=== PATIENT | female | born 1975 | race Caucasian/White ===

== ENCOUNTER 2021-08-16 02:09 | Emergency (ER) | payer MEDICAID ==
[~2021-08-16] VITALS: Ht 172.7 cm; Wt 65.9 kg
[~2021-08-16 02:09] MED LIST: CEPH-572 PO
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
[2021-08-16] MEDS ORDERED: TETanus/Pertussis (Acell)/Diphther VAC/PF (Tdap-Adult) 0.5ml syringe IMVAC ONE (03:30)
[2021-08-16 03:37] VITALS: BP 128/77
== END 2021-08-16 03:39 ==
LOC: ER 02:11 → MERGE 02:11 → EDSEX 02:11 → EDBD 02:11 → ER 03:39
DX: S30.0XXA Contusion of lower back and pelvis, initial encounter (principal); X58.XXXA Exposure to other specified factors, initial encounter; Y93.89 Activity, other specified; Y92.89 Other specified places as the place of occurrence of the external cause; Y99.8 Other external cause status
CPT/HCPCS: 99283

== ENCOUNTER 2022-02-28 22:47 | Emergency (ER) | payer SELFPAY ==
[~2022-02-28] VITALS: Ht 167.6 cm; Wt 60.0 kg
[2022-02-28 23:03] VITALS: BP 108/44
== END 2022-03-01 04:48 | disposition left against medical advice (07) ==
LOC: ER 22:49
DX: Z00.00 Encounter for general adult medical examination without abnormal findings (principal); Z53.21 Procedure and treatment not carried out due to patient leaving prior to being seen by health care provider

== ENCOUNTER 2022-07-18 19:06 | Emergency (ER) | payer SELFPAY ==
[~2022-07-18] VITALS: Ht 172.7 cm; Wt 59.1 kg
[~2022-07-18 19:06] MED LIST changes: +IBUP-860 PO
[2022-07-18 19:11] VITALS: BP 100/64
[2022-07-18] MEDS ORDERED: normal saline 1000ml 1,000 ML IV ONE ×2 (19:35→22:35)
[2022-07-18] MEDS ORDERED: naloxone 2mg/2ml inj IV STA ×4 (19:40→22:43)
[2022-07-18 19:43] LABS: BASOPHILS # (AUTO) 0.1 X10'3 (0-0.2); EOSINOPHILS # (AUTO) 0.1 X10'3 (0-0.9); EOSINOPHILS % (AUTO) 1.4 % (0-6); HEMATOCRIT 39.7 % (35.0-45.0); HEMOGLOBIN 12.9 g/dl (12.0-16.0); LYMPHOCYTES # (AUTO) 1.5 X10'3 (1.1-4.8); LYMPHOCYTES % (AUTO) 14.4 % (21-51); MEAN CORPUSCULAR HEMOGLOBIN 30.1 PG (27.0-31.0); MEAN CORPUSCULAR HGB CONC 32.6 g/dL (33.0-36.5); MEAN CORPUSCULAR VOLUME 92.3 FL (78-98); MEAN PLATELET VOLUME 8.1 FL (7.4-10.4); MONOCYTES # (AUTO) 0.7 X10'3 (0-0.9); MONOCYTES % (AUTO) 6.7 % (2-12); NEUTROPHILS # (AUTO) 7.7 X10'3 (1.8-7.7); NEUTROPHILS % (AUTO) 76.5 % (42-75); PLATELET COUNT 291 X10'3 (140-440); RED CELL DISTRIBUTION WIDTH 14.1 % (11.5-14.5); WHITE BLOOD COUNT 10.1 X10'3 (4.5-11.0)
[2022-07-18 19:54] LABS: ALANINE AMINOTRANSFERASE 47 U/L (12-78); ALBUMIN 3.7 G/DL (3.4-5.0); ALBUMIN/GLOBULIN RATIO 1.1 (1.1-1.5); ALKALINE PHOSPHATASE 106 IU/L (46-116); ANION GAP 12 (8-16); ASPARTATE AMINO TRANSFERASE 27 U/L (10-37); BILIRUBIN,TOTAL 0.2 MG/DL (0.1-1.0); BLOOD UREA NITROGEN 19 MG/DL (7-18); BUN/CREATININE RATIO 17.4 (10.0-20.0); CHLORIDE 106 MMOL/L (99-107); CREATININE 1.09 MG/DL (0.40-0.90); GLUCOSE 236 MG/DL (70-104); POTASSIUM 3.1 MMOL/L (3.5-5.1); SODIUM 142 MMOL/L (135-145); TOTAL CARBON DIOXIDE 24.4 MMOL/L (24-32); eGFR 54 ML/MIN
[2022-07-18 20:00] LABS: ETHANOL < 0.010 GM/DL (0.0-0.010)
[2022-07-18 20:12] LABS: URINE HCG NEGATIVE (NEG)
[2022-07-18 20:29] LABS: URINE AMPHETAMINE SCREEN POSITIVE (Neg); URINE BARBITUATE SCREEN NEGATIVE (Neg); URINE BENZODIAZEPINES SCREEN NEGATIVE (Neg); URINE CANNABINOID SCREEN POSITIVE (Neg); URINE COCAINE SCREEN NEGATIVE (Neg); URINE METHADONE SCREEN NEGATIVE (Neg); URINE OPIATE SCREEN NEGATIVE (Neg); URINE PHENCYCLIDINE SCREEN NEGATIVE (Neg)
--- NOTE | 2022-07-18 21:23 | NUR ---
Pt refusing lab draws. Physician aware.
[2022-07-18] MEDS ORDERED: NALO4SPR BOTHNARES (21:32)
[2022-07-18] MEDS ORDERED: POTASSIUM BICARB 20meq eff tab 20 MEQ TABLET.EFF PO STA (22:29)
[2022-07-18] MEDS ORDERED: naloxone 2mg/2ml inj 2 MG in normal saline 500ml IV soln 498 ML IV SCH (22:45)
[2022-07-19] MEDS ORDERED: NALO4SPR BOTHNARES (04:45)
[2022-07-19] MEDS ORDERED: NO HOME MEDS (12:00)
== END 2022-07-18 23:06 | disposition left against medical advice (07) ==
LOC: ER 19:07 → MERGE 19:07 → ER 23:06
DX: T40.601A Poisoning by unspecified narcotics, accidental (unintentional), initial encounter (principal); E87.6 Hypokalemia; Y92.89 Other specified places as the place of occurrence of the external cause; F12.90 Cannabis use, unspecified, uncomplicated; F15.20 Other stimulant dependence, uncomplicated; Z59.00 Homelessness unspecified; Z56.0 Unemployment, unspecified
CPT/HCPCS: 36415; 71045; 80053; 80305; 80320; 81025; 83880; 84484; 85025; 93005; 96361; 96374; 96376; 99285; J2310; J7030; A4353; A4565; A4615

== ENCOUNTER 2022-12-01 21:59 | Emergency (ER) | payer MEDICAID ==
[~2022-12-01] VITALS: Ht 165.1 cm; Wt 59.1 kg
[2022-12-01] MEDS ORDERED: LORazepam 2 mg/ml vial IM ONE (22:15)
[2022-12-01] MEDS ORDERED: haloperidol lactate 5mg/ml inj IM ONE (22:15)
[2022-12-01] MEDS ORDERED: diphenhydrAMINE 50 mg/ml inj IM ONE (22:15)
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
[2022-12-01 22:41] LABS: BASOPHILS # (AUTO) 0.1 X10'3 (0-0.2); BASOPHILS % (AUTO) 0.7 % (0-1); EOSINOPHILS # (AUTO) 0.1 X10'3 (0-0.9); EOSINOPHILS % (AUTO) 0.7 % (0-6); HEMATOCRIT 37.1 % (35.0-45.0); HEMOGLOBIN 12.2 g/dl (12.0-16.0); LYMPHOCYTES % (AUTO) 11.3 % (21-51); MEAN CORPUSCULAR HEMOGLOBIN 30.1 PG (27.0-31.0); MEAN CORPUSCULAR VOLUME 91.2 FL (78-98); MEAN PLATELET VOLUME 9.2 FL (7.4-10.4); MONOCYTES # (AUTO) 0.6 X10'3 (0-0.9); MONOCYTES % (AUTO) 6.6 % (2-12); NEUTROPHILS # (AUTO) 7.4 X10'3 (1.8-7.7); NEUTROPHILS % (AUTO) 80.7 % (42-75); PLATELET COUNT 245 X10'3 (140-440); RED BLOOD COUNT 4.07 X10'6 (4.20-5.60); RED CELL DISTRIBUTION WIDTH 13.4 % (11.5-14.5); WHITE BLOOD COUNT 9.2 X10'3 (4.5-11.0)
[2022-12-01 22:48] LABS: ALANINE AMINOTRANSFERASE 99 U/L (12-78); ALBUMIN 4.2 G/DL (3.4-5.0); ALBUMIN/GLOBULIN RATIO 1.3 (1.1-1.5); ALKALINE PHOSPHATASE 93 IU/L (46-116); ANION GAP 13 (8-16); ASPARTATE AMINO TRANSFERASE 108 U/L (10-37); BILIRUBIN,TOTAL 1.5 MG/DL (0.1-1.0); BLOOD UREA NITROGEN 17 MG/DL (7-18); BUN/CREATININE RATIO 18.3 (10.0-20.0); CALCIUM 9.5 MG/DL (8.5-10.1); CHLORIDE 99 MMOL/L (99-107); CREATININE 0.93 MG/DL (0.40-0.90); ETHANOL < 10 MG/DL (<10); GLUCOSE 114 MG/DL (70-104); POTASSIUM 4.1 MMOL/L (3.5-5.1); SODIUM 135 MMOL/L (135-145); TOTAL CARBON DIOXIDE 23.2 MMOL/L (24-32); TOTAL PROTEIN 7.4 G/DL (6.4-8.2); eCRCL 67 ML/MIN; eGFR 65 ML/MIN
--- NOTE | 2022-12-02 00:36 | NUR ---
PT HAS BEEN SLEEPING IN ER ROOM 10 POST MEDICATIONS. RR ARE EQUAL AND UNLABORED. NO DISTRESS OBSERVED.
--- NOTE | 2022-12-02 00:55 | NUR ---
PT IS UNCOOPERATIVE WITH THE GENERAL ASSESSMENT. PT WILL NOT ALLOW NURSING STAFF TO EXAMINE HER.
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
--- NOTE | 2022-12-02 03:14 | NUR ---
The patient appears to be sleeping
--- NOTE | 2022-12-02 05:02 | NUR ---
The patient appears to be sleeping
--- NOTE | 2022-12-02 06:30 | NUR ---
Received pt. sleeping in bed, rise and fall of chest noted.
--- NOTE | 2022-12-02 08:30 | NUR ---
Pt. continues to sleep at this time, resting on her back, rr are even and unlabored.
--- NOTE | 2022-12-02 10:27 | NUR ---
Pt. continues to sleep at this time, she makes intermittent body adjustments.
--- NOTE | 2022-12-02 10:45 | NUR ---
Pt. awoke requesting to use the bathroom, ordered urine sample was obtained and taken to lab. Pt. is now sitting up in bed eating breakfast at this time.
[2022-12-02 10:54] LABS: URINE HCG NEGATIVE (NEG)
[2022-12-02 10:58] LABS: BILIRUBIN,URINE NEGATIVE (Neg); CLARITY,URINE CLEAR (Clear); COLOR,URINE YELLOW (Yellow); GLUCOSE, URINE NEGATIVE (Neg); KETONES,URINE TRACE mg/dl (Neg); LEUKOCYTE ESTERASE ,URINE NEGATIVE (Neg); NITRITES, URINE NEGATIVE (Neg); OCCULT BLOOD,URINE NEGATIVE (Neg); PROTEIN,URINE NEGATIVE (Neg); UROBILINOGEN,URINE 0.2 E.U/dL (0.2-1.0)
--- NOTE | 2022-12-02 11:00 | NUR ---
Pt. awoke at approximately 1100 and ambulated to the bathroom independently. She presented as pleasant and cooperative and allowed this board writer to complete vital signs and a physical assessment. Pt. also ate 100% of her breakfast and then returned back to bed. Upon physical assessment, pt. has scabbed abrasions present to her bilateral arms and legs witch appear to be healing well. She also has bruising on her face, but is unable to articulate the cause of these injuries. Pt. is A&O X2 (to name and place only). Pt. denies any S/I or A/V/BURT and upon further questioning became agitated and began making what appeared to be disorganized paranoid delusional statements. When questioned regarding why she is here, pt. stated, "I was way out in the middle of nowhere and trying to get to [place]. The doctor withheld my SSI! It affects all of you, comes out of taxes!" She then continued on accusing this board writer, "It was you! You're the one!" This board writer was unable to re-orient pt. to reality and provided pt. with a quiet environment (decreased stimulation with lights off) to help de-escalate her. This was effective and pt. returned to sleep, will continue to monitor her closely.
[2022-12-02 11:03] LABS: UA COLLECTION TYPE CLN CATCH MIDSTREAM
[2022-12-02 11:14] LABS: URINE AMPHETAMINE SCREEN POSITIVE (Neg); URINE BARBITUATE SCREEN NEGATIVE (Neg); URINE BENZODIAZEPINES SCREEN NEGATIVE (Neg); URINE CANNABINOID SCREEN POSITIVE (Neg); URINE COCAINE SCREEN NEGATIVE (Neg); URINE METHADONE SCREEN NEGATIVE (Neg); URINE OPIATE SCREEN NEGATIVE (Neg); URINE PHENCYCLIDINE SCREEN NEGATIVE (Neg)
--- NOTE | 2022-12-02 11:25 | NUR ---
tom sent pt packet to [facility]
--- NOTE | 2022-12-02 12:33 | NUR ---
Pt. is sleeping at this time, rr are even and unlabored.
--- NOTE | 2022-12-02 13:09 | NUR ---
[facility] at bedside evaluating pt. at this time.
--- NOTE | 2022-12-02 14:22 | NUR ---
Pt. is sleeping at this time, laying on her right side.
--- NOTE | 2022-12-02 15:48 | NUR ---
Per charge aide of [facility], pt. is pending acceptance at this time. However, CLAUDETTE Vega is concerned regarding pt's recent aggression and labile behaviors. She would like to start the pt. on oral medication first and see how she responds prior to accepting. CLAUDETTE Vega ordered Zyprexa 10mg at HS which will be started tonight. Will endorse to Noc shift and continue to monitor pt. closely.
--- NOTE | 2022-12-02 16:22 | NUR ---
Pt. continues to sleep at this time, laying on her right side.
--- NOTE | 2022-12-02 18:15 | NUR ---
Pt. continues to sleep at this time, rr are even and unlabored.
--- NOTE | 2022-12-02 18:30 | NUR ---
Pt recieved Right side lying in hospital bed. Pt is arouseable to verbal stimuli. Pt provided dinner tray. She wanted scientific writer to leave on bedside table. Pt was desiring to sleep.
--- NOTE | 2022-12-02 20:00 | NUR ---
Pt ate dinner sitting up side of bed. Pt refused nursing assessment. She stated it is time for sleep. Pt refused night time medications. She stated she is allergic to all schizophrenic medications. Marketing Database Consultant inquired which medications she is allergic to and pt responded "I'm allergic to all schizophrenic medications." She proceeded to state it is time for sleep and wanted junior technical writer to turn off the lights.
[2022-12-02] MEDS ORDERED: olanzapine 10mg tablet PO SCH (21:00)
--- NOTE | 2022-12-02 22:00 | NUR ---
Pt right side lying, sleeping, no respiratory distress noted, even rise and fall of chest. Pt repositions self in bed.
--- NOTE | 2022-12-03 00:16 | NUR ---
Pt sleeping, breathing even and unlabored on room air, even rise and fall of chest, right side lying noted.
--- NOTE | 2022-12-03 02:13 | NUR ---
Pt lying supine, sleeping, no respiratory distress noted, even rise and fall of chest. Pt repositions self in bed.
--- NOTE | 2022-12-03 04:00 | NUR ---
Pt sleeping, breathing even and unlabored on room air, even rise and fall of chest, lying supine. Intermittent moist cough noted. Non Productive.
[2022-12-03 05:41] VITALS: BP 109/75; PULSE 72; RESP 16; O2SAT 98
--- NOTE | 2022-12-03 07:41 | NUR ---
Received Pt in bed sleeping w/o distress at the beginning of the shift. Pt remains sleeping and chart has been reviewed.
--- NOTE | 2022-12-03 09:15 | NUR ---
Pt woke and made requests appropriately. She used bathroom and ate breakfast well. Pt answered minimal questions during assessment and returned to sleep w/o distress at this time.
--- NOTE | 2022-12-03 11:27 | NUR ---
Pt remains in bed sleeping at this time.
--- NOTE | 2022-12-03 13:10 | NUR ---
Pt woke to eat all of her lunch and returned to sleep after using bathroom.
--- NOTE | 2022-12-03 14:50 | NUR ---
Nurse to nurse done with [facility]. for potential in-pt placement. Pt remains in bed and appears to be sleeping and in no distress at this time.
[2022-12-03] MEDS ORDERED: NICOTINE POLACRILEX 2 MG LOZENGE BC PRN (16:15)
--- NOTE | 2022-12-03 16:30 | NUR ---
Pt woke and used bathroom again. Pt requested a snack and was given a snack which she ate right away. Pt repoprted having nicotine cravings. This RN consulted with and obtained an order for nicotine Lozenges prn, as Pt reported that Nicotine patches are innefective for her. Pt was given a Tomy tee. and was appreciative.
--- NOTE | 2022-12-03 17:36 | NUR ---
Pt was picked up by [facility] route salesman and driver. Original 5150 was given to the route salesman and driver along with the Pt's belongings. Pt left unit at 1730 w/o issue.
[2022-12-03 17:38] VITALS: TEMP 98
== END 2022-12-03 17:41 ==
LOC: ER 22:00
DX: S00.83XA Contusion of other part of head, initial encounter (principal); Z20.822 Contact with and (suspected) exposure to COVID-19; S40.021A Contusion of right upper arm, initial encounter; F23 Brief psychotic disorder; F60.0 Paranoid personality disorder; I10 Essential (primary) hypertension; J44.9 Chronic obstructive pulmonary disease, unspecified; M19.90 Unspecified osteoarthritis, unspecified site; F12.90 Cannabis use, unspecified, uncomplicated; F15.90 Other stimulant use, unspecified, uncomplicated; Z72.89 Other problems related to lifestyle; Z88.8 Allergy status to other drugs, medicaments and biological substances; Y93.89 Activity, other specified; Y92.89 Other specified places as the place of occurrence of the external cause; Y99.8 Other external cause status
CPT/HCPCS: 36415; 80053; 80305; 80320; 81003; 81025; 85025; 87811; 96372; 99285; J1200; J1630; J2060